=== PATIENT | female | born 1955 | race Caucasian/White ===

== ENCOUNTER 2020-01-05 21:42 | Inpatient (IN) | payer MEDICARE, OTHER ==
[~2020-01-05] VITALS: Ht 172.7 cm; Wt 73.5 kg
--- NOTE | 2020-01-05 21:52 | NUR ---
Dr. Gama at bedside for MSE.
--- NOTE | 2020-01-05 23:10 | NUR ---
Report given to Bing GRIFFITH MHU.
[2020-01-05] MEDS ORDERED: MAG HYDROX/AL HYDROX/SIMETH 30 ML LIQUID UDC PO PRN (23:45)
[2020-01-05] MEDS ORDERED: BLOOD SUGAR DIAGNOSTIC 1 EACH STRIP VI ONE (23:45)
[2020-01-06] MEDS: TEMAZEPAM 7.5 MG CAPSULE PO PRN (00:17)
--- NOTE | 2020-01-06 00:45 | NUR ---
ADMISSION NOTE: ADMITTED LAST NIGHT AT APPROX 2330, A 64 YEARS OLD FEMALE FROM [facility] ER TO U ON A 5150 HOLD FOR GD. PER HOLD, PATIENT'S FRIEND CALL THE CLINIC MULTIPLE TIMES REGARDING PATIENT'S BEHAVIOR. UPON EVALUATION, PT WAS OBSERVED PACING BACK AND FORT AT HER APARTMENT. SHE WAS UNABLE TO SIT STILL. UNABLE TO PARTICIPATE IN EVALUATION. HER APARTMENT IS IN DISARRAY AND THERE IS NO FOOD IN HER REFRIGERATOR. PATIENT APPEARS TO BE GROSSLY DISORGANIZED. HER HOLD WILL BE UP ON 10/08/2019 AT 2120. UPON ADMISSION TO THE UNIT, PATIENT NOTED A/O X 1 ABLE TO AMBULATE WITH STEADY GAIT. UPON INTERVIEW, PATIENT REFLECTS WHAT IS WRITTEN IN THE HOLD. SHE APPEARS GROSSLY PSYCHOTIC, DELUSIONAL, GRANDIOSE DELUSION, HYPERVERBAL, FLIGHT OF IDEAS, UNABLE TO HAVE A MEANINGFUL CONVERSATION. SHE WAS UNABLE TO SIGN ANY ADMISISON PAPER. FACE TO FACE ASSESSMENT WAS DONE. PATIENT WAS ADVISED OF HER HOLD AND GIVEN HER ADVISEMENT AND THE "PATIENT' MENTAL HEALTH" BOOKLET AND HER RIGHTS. SHE WAS HELPED INTO THE SHOWER. SKIN ASSESSMENT WAS LIMITED D/T PATIENT'S POOR COMPLIANT; HOWEVER, HER SKIN APPEARS INTACT. PT HAD MASTECTOMY RT BREAST. ALL HER BELOGNINGS AND CONTRABAND WAS TAKEN FROM PATIENT AND SECURED. PT WAS ADVISED OF UNIT RULES, ROOM AND ROOMMATE. SHE WAS GIVEN TEMAZEPAM 7.5 MG. PATIENT IS UNDER THE CARE OF DR LEAL. WILL CONTINUE TO MONITOR Q15MIN.
[2020-01-06 07:30] VITALS: BP 121/79
--- NOTE | 2020-01-06 09:45 | NUR ---
FRIEND CONTACT: SW contacted pts friend Go ([phone]) who provided SW with collateral information. He states pt has a long history of mental illness and psychiatric hospitalizations since the age of 17 and pt was recently hospitalized at [facility] in [facility] for 2 weeks. He states pt received Invega Sustenna Injection last week and states pt is suppose to be taking Risperdal, Trazodone, Dilantin. However, when discharged from [facility] pt was not prescribed that medication and pt went 2 weeks without taking it and that is when pt became psychotic and began decompensating. He states pt is under the psychiatric care of Dr. Salmeron from [facility] [address] , [facility] [address] .
--- NOTE | 2020-01-06 10:02 | NUR ---
FAMILY CONTACT: KESHAWN spoke with pts sister Janel ([phone]) for collateral information, treatment and discharge planning. Per sister she is pts main contact and she wishes for pt to return home ([address], [place] [address]) she states pt has a long history of mental illness and psychiatric hospitalizations since the age of 17. Per sister pt is single and has no children and finished 2 years of college. Sister states that pt was recently hospitalized at [facility] in [facility] for 2 weeks. Sister states that pts friend Go ([phone]) and nephew Adam ([phone]) look after pt and visit her daily.
[2020-01-06] MEDS: CLONAZEPAM 0.5 MG TABLET PO PRN ×2 (10:05→21:23)
--- NOTE | 2020-01-06 10:34 | NUR ---
INITIAL DISCHARGE PLAN: Per pts sister Janel ([phone]) she wishes for pt to return home [address], [place] [address]. SW will help form a safe and proper discharge in collaboration with .
--- NOTE | 2020-01-06 14:36 | NUR ---
Social Work Note: Patient is hyperverbal and tangential. Patient has been responding to internal stimulli. Patient stated that she is experiencing visual hallucination and that she is seeing her " father". This mortgage loan underwriter assured that her father is not here and helped re-direct patient back to reality. Patient expressed that she is engaged and that she has a chana ring on. Patient is paranoid and delusional.
[2020-01-06 16:06] VITALS: BP 116/78
[2020-01-06] MEDS: ARIPIPRAZOLE 5 MG TABLET PO SCH (18:36)
[2020-01-06] MEDS: DIVALPROEX 250 MG TABLET.DR PO SCH (18:37)
[2020-01-06 20:07] VITALS: BP 114/69
[2020-01-07 07:30] VITALS: BP 123/85
[2020-01-07] MEDS: DIVALPROEX 250 MG TABLET.DR PO SCH ×3 (09:24→17:26)
[2020-01-07] MEDS: ARIPIPRAZOLE 5 MG TABLET PO SCH ×2 (09:24→17:27)
--- NOTE | 2020-01-07 15:35 | NUR ---
SW Family Contact: Spoke with Patients friend Go ([phone]) who stated that he will olive picker the patient and take her back home upon discharge.
[2020-01-07] MEDS: CLONAZEPAM 0.5 MG TABLET PO PRN (15:59)
[2020-01-07 16:48] VITALS: BP 146/64
[2020-01-07 21:00] VITALS: BP_SYST 68
[2020-01-08] MEDS: TEMAZEPAM 7.5 MG CAPSULE PO PRN (00:47)
[2020-01-08] MEDS: ACETAMINOPHEN 325 MG TABLET PO PRN (01:08)
[2020-01-08] MEDS: CLONAZEPAM 0.5 MG TABLET PO PRN (01:53)
[2020-01-08 07:30] VITALS: BP 124/72
[2020-01-08] MEDS: DIVALPROEX 250 MG TABLET.DR PO SCH ×3 (08:51→17:43)
[2020-01-08] MEDS: ARIPIPRAZOLE 5 MG TABLET PO SCH ×2 (08:51→17:43)
--- NOTE | 2020-01-08 10:34 | NUR ---
KESHAWN Family Contact: KESHAWN spoke with patient's friend Go ([phone]) regarding patient's behaviors and presenting problems. KESHAWN also left a voicemail for patient's sister Janel ([phone]) to discuss patient's current status. Addendum: 01/08/20 at 1417 by MANJU MCGREGOR Received a call back from patients sister Janel ([phone]) who was wanting updates on the patient's behaviors. Janel also requested for the psychiatrist, Dr. Orona to speak with the patient's outpatient psychiatrist Dr. Salmeron ([phone]). This manual writer informed Dr. Orona of this request.
--- NOTE | 2020-01-08 14:51 | NUR ---
KESHAWN Individual Therapy Note: SW met with patient for brief individual counseling to address patient's impairment in functioning. Patient presents guarded and withdrawn. Patient kept her head under her pillow and refused to engage in a conversation with this data analyst report writer. SSW attempted to engage with patient by asking her general questions about how she is feeling, patient said "good, now go away!"
--- NOTE | 2020-01-08 16:00 | NUR ---
Gps/Information Systems Supervisor- Showered by LAND MEASURER. this pm. Requesting all her clothes/belongings and the need to leave . Confused, incoherent speech , restless, pacing .
--- NOTE | 2020-01-09 06:02 | NUR ---
GPS: PT RECEIVED WALKING WITHIN ROOM TO NURSING STATION AND SPEAKING TO HERSELF. VERY DISORGANIZED, POOR INSIGHT AND UNABLE TO RECOLLECT WITHIN A DAY. A/OX1, PT BECOME IRRITATED WHEN INFRACTING OR WHEN INTERVIEWED. PT UNKEMPT AND REFUSED SHOWER. UNCOOPERATIVE WITH STAFFS MOST TIMES. NO PHYSICAL AGGRESSION TOWARDS STAFFS BUT VERBALLY ABUSIVE AND USING FOUL LANGUAGE WHEN UPSET. UNABLE TO REDIRECT PT BUT DISTRACT AND KEPT CALM WITH NEEDS MET. PT SLEPT WELL, AWAKE THIS MORNING AND PACING, RESPONDING TO INTERNAL STIMULI. WILL CONTINUE TO MONITOR.
[2020-01-09 07:30] VITALS: BP 129/98
[2020-01-09] MEDS: DIVALPROEX 250 MG TABLET.DR PO SCH ×3 (08:42→16:20)
[2020-01-09] MEDS: ARIPIPRAZOLE 5 MG TABLET PO SCH ×2 (08:42→16:20)
[2020-01-09] MEDS: CLONAZEPAM 0.5 MG TABLET PO PRN (13:29)
[2020-01-09 16:17] VITALS: BP 158/90
[2020-01-09 21:01] VITALS: BP 130/79
[2020-01-09] MEDS: TEMAZEPAM 7.5 MG CAPSULE PO PRN (21:01)
--- NOTE | 2020-01-09 21:28 | NUR ---
Received patient at the nurses station, with arms crossed and demanding 2 Restoril. Earlier, patient refused to allow the CLOTHES DESIGNER to get VS. Garment Worker eventually was able to obtain vitals and offered patient sleeping pill which she declined. Moments later , patient was at the station asking again. Garment Worker noticed that patient paces up and down the wade, leaves room cluttered. Asking for multiple items. Clothing, food etc. Patient is paranoid and has delusions of " Give me some mens pants or the [employer] will come here". Garment Worker attempted to have meaningful conversation with patient and to reorient patient to the reality of the situation. Patient was non receptive and needs reinforcement. Patient did end up receiving a sleeping pill. Monitoring for safety and behavior escalation at this time.
--- NOTE | 2020-01-10 06:12 | NUR ---
Patient slept 7 hours last night. Patient is delusional and paranoid, multiple attempts to use phone in the hallway to call " None of your business ". Produce Inspector redirected patient but this only irritate patient and was not effective. Monitoring for behavior escalation and safety at this time.
[2020-01-10 07:30] VITALS: BP 108/75
[2020-01-10] MEDS: DIVALPROEX 250 MG TABLET.DR PO SCH ×3 (08:08→16:38)
[2020-01-10] MEDS: ARIPIPRAZOLE 5 MG TABLET PO SCH ×2 (08:08→16:38)
[2020-01-10] MEDS: CLONAZEPAM 0.5 MG TABLET PO PRN (12:15)
--- NOTE | 2020-01-10 15:24 | NUR ---
GPS: Nursing Notes: Thought Disorder: Patient is awake and responding to her name, poor impulse control, poor anger management, resistant with nursing care, loud and angry affect, believes that there is nothing wrong with her, labile, unpredictable behavior, gets easily irritable when redirected, internally preoccupied, argumentative at times, episodes of shouting "I am going to fired my doctor..", refusing her V/S at times, unable to formulate a viable plan for self care, disoriented to situation, continue with treatment plan.
[2020-01-10 16:00] VITALS: BP 158/78
[2020-01-10 20:00] VITALS: BP 132/72
[2020-01-10] MEDS: MAGNESIUM HYDROXIDE 30 ML LIQUID UDC PO PRN (22:04)
[2020-01-10] MEDS: TEMAZEPAM 7.5 MG CAPSULE PO PRN (22:10)
--- NOTE | 2020-01-11 05:52 | NUR ---
Received patient at the nurses station last night, being demanding. Patient was insisting that I give her make up. When she was told that she would get it first thing in the morning patient gave expert medical writer the middle finger and verbalized obscenities. This am patient came to the nurses station after 5.30 hours of sleep, and was calm and pleasant. Patient took a shower, used her make up as promised and put on fresh cloths. No overt paranoia or delusions at this moment. Positive reinforcement provided from staff. Continuing to monitor.
[2020-01-11] MEDS: CLONAZEPAM 0.5 MG TABLET PO PRN ×2 (06:20→12:52)
[2020-01-11 07:30] VITALS: BP 115/76
[2020-01-11] MEDS: DIVALPROEX 250 MG TABLET.DR PO SCH ×2 (08:34→16:06)
[2020-01-11] MEDS: ARIPIPRAZOLE 5 MG TABLET PO SCH (08:57)
[2020-01-11] MEDS: ACETAMINOPHEN 325 MG TABLET PO PRN (12:52)
[2020-01-11] MEDS: MAGNESIUM HYDROXIDE 30 ML LIQUID UDC PO PRN (14:12)
--- NOTE | 2020-01-11 15:02 | NUR ---
KESHAWN Individual Therapy Note: SW met with patient for brief individual counseling to address patient's impairment in functioning. Patient presents irritable and labile. SW attempted to help patient gain insight into her presenting problems, however patient is not cooperative at this time.
[2020-01-11] MEDS: risperiDONE 1 MG TABLET PO SCH ×2 (15:10→21:16)
[2020-01-11 15:39] VITALS: BP 111/77
[2020-01-11 20:00] VITALS: BP 118/72
--- NOTE | 2020-01-11 23:40 | NUR ---
RECEIVED PATIENT IN HER ROOM,CONFUSED , MUMBLING AND TALKING TO HERSELF. UNABLE TO ASSESS HER MENTAL STATUS.LATER CAME OUT PACING THE HALLWAY, ASKING TO BE GIVEN HER RESTORIL MEDICATION.PATIENT TOOK HER MEDICATION WITH GOOD EFFECT.WILL CONTINUE TO MONITOR.
[2020-01-12] MEDS: TEMAZEPAM 7.5 MG CAPSULE PO PRN (00:05)
--- NOTE | 2020-01-12 06:43 | NUR ---
SHE SLEPT FOR 5:30HOURS.
[2020-01-12 07:30] VITALS: BP 109/54
[2020-01-12] MEDS: DIVALPROEX 250 MG TABLET.DR PO SCH ×2 (08:29→17:06)
[2020-01-12] MEDS: risperiDONE 1 MG TABLET PO SCH ×2 (08:29→20:09)
[2020-01-12] MEDS: CLONAZEPAM 0.5 MG TABLET PO PRN (13:53)
[2020-01-12] MEDS: ACETAMINOPHEN 325 MG TABLET PO PRN (13:53)
[2020-01-12 20:39] VITALS: BP 124/66
--- NOTE | 2020-01-13 05:50 | NUR ---
Received Patient in the activity room last night, calm and cooperative, compliant with medication and care,later that night Patient was complaining about her room mate .Stated she's trying to threatened her and wants the roommate to be moved to the other bed or unit.Patient Easily irritated with staff and roommate and has poor thought processing. .Patient slep well throught out the night and no other behavior issues noted between her and the roommate.
[2020-01-13] MEDS: DIVALPROEX 250 MG TABLET.DR PO SCH ×2 (08:50→16:25)
[2020-01-13] MEDS: risperiDONE 1 MG TABLET PO SCH ×2 (08:50→20:49)
[2020-01-13] MEDS: CLONAZEPAM 0.5 MG TABLET PO PRN (16:30)
--- NOTE | 2020-01-13 18:27 | NUR ---
Patient compliant with medication. Patient noted murmuring during conversation. Patient seen going to nurse station more often in the afternoon asking for food. Patient redirect and clonazepam 0.5mg PRN given. will continue monitor
[2020-01-13] MEDS: MAGNESIUM HYDROXIDE 30 ML LIQUID UDC PO PRN (18:37)
[2020-01-13] MEDS: TEMAZEPAM 7.5 MG CAPSULE PO PRN (21:47)
--- NOTE | 2020-01-13 22:39 | NUR ---
Patient received walking in the hallway. Delusional. Compliant with medication, but asking for 3 Valium tablets. Not cooperative. No SI. Safety measures maintained.Continue to monitor.
[2020-01-14] MEDS: risperiDONE 1 MG TABLET PO SCH ×2 (10:50→20:15)
[2020-01-14] MEDS: DIVALPROEX 250 MG TABLET.DR PO SCH ×2 (10:50→16:44)
--- NOTE | 2020-01-14 13:09 | NUR ---
KESHAWN Individual Therapy Note: SW met with patient for brief individual counseling to address patient's impairment in functioning. Patient presents irritable, labile, and guarded. Patient does not want to talk to this freelance copywriter. Patient was not answering any of this writers questions. Patient was unable to maintain proper eye contact. This freelance copywriter was unable to provide brief therapy.
[2020-01-14 15:20] VITALS: BP 131/82
--- NOTE | 2020-01-14 15:51 | NUR ---
Received patient in bed, slept for most of the shift. No acute distress noted. Denies any pain. Denies any SI while assessing patient. Vital signs stable. Compliant with medications. Patient noted being delusional, confused, and demanding with care. Patient also noted talking to self. Patient currently in bed and calm. Informed patient to participate in activities but stayed in room. All other needs attended, safety measures in place and will continue with care.
--- NOTE | 2020-01-14 21:45 | NUR ---
Patient received walking in the hallway. Delusional. Compliant with medication. Not cooperative. No SI. Safety measures maintained.Continue to monitor.
[2020-01-14] MEDS: TEMAZEPAM 7.5 MG CAPSULE PO PRN (21:57)
--- NOTE | 2020-01-14 22:20 | NUR ---
Patient requested sleeping pill. PRN Restoril 7.5 mg administered and effective. Continue to monitor.
[2020-01-15 01:41] VITALS: BP 141/74
[2020-01-15 07:30] VITALS: BP 177/66
[2020-01-15] MEDS: risperiDONE 1 MG TABLET PO SCH ×2 (09:08→20:32)
[2020-01-15] MEDS: DIVALPROEX 250 MG TABLET.DR PO SCH ×2 (09:08→17:32)
[2020-01-15 16:00] VITALS: BP 118/76
[2020-01-15 20:00] VITALS: BP 145/80
[2020-01-15] MEDS: CLONAZEPAM 0.5 MG TABLET PO PRN (21:41)
[2020-01-15] MEDS: ACETAMINOPHEN 325 MG TABLET PO PRN (21:52)
--- NOTE | 2020-01-16 02:23 | NUR ---
GPS: PT NOTED AWAKE LYING IN BED, RESPOND TO NAME AND COMMUNICATE WHEN INITIATED, A/OX2 BUT CONFUSE. PT DENIED SI, BUT POOR INSIGHT AND DISORGANIZED THINKING. PT COOPERATIVE WITH MEDICATIONS ORDER. ON AND OFF WALKING TO STATION AND SPEAKING TO HERSELF OR RESPONDING TO INTERNAL STIMULI. PT REQUESTED KLONOPIN PER UNABLE TO REST AND PRN GIVEN ORDER AT 2140, BY 2151 PT REQUESTED FOR TYLENOL AND SAID SHE IS HAVING PAIN IN HER HEAD. PRN GIVEN AND NOTED SOME EFFECT. PT AT THIS TIME SLEEPING AND NOTED EVEN BREATHING.
--- NOTE | 2020-01-16 06:44 | NUR ---
PT REMAIN CALM DURING NIGHT S/P KLONOPIN AND TYLENOL ADMINISTRATION. PT SLEPT 7HRS AND CONTINUE RESTING.
[2020-01-16 07:30] VITALS: BP 137/102
[2020-01-16] MEDS: risperiDONE 1 MG TABLET PO SCH ×2 (09:33→20:35)
[2020-01-16] MEDS: DIVALPROEX 250 MG TABLET.DR PO SCH ×2 (09:33→16:57)
[2020-01-16 21:34] VITALS: BP 158/84
[2020-01-16] MEDS: CLONAZEPAM 0.5 MG TABLET PO PRN (23:40)
--- NOTE | 2020-01-17 02:18 | NUR ---
GPS: Pt a/ox2, confuse and some irritation with episodes of responding to internal stimuli. Pt able to be redirected but poor insight. PRN Klonopin given per pt request and noted effect, pt asleep at this time.
[2020-01-17 07:30] VITALS: BP 141/94
[2020-01-17] MEDS: risperiDONE 1 MG TABLET PO SCH ×2 (08:26→20:47)
[2020-01-17] MEDS: DIVALPROEX 250 MG TABLET.DR PO SCH ×2 (08:27→16:55)
[2020-01-17 16:00] VITALS: BP 130/64
--- NOTE | 2020-01-17 18:32 | NUR ---
Patient received in bed, AAO x1, able to express needs but with flights of ideas while trying to express self, also noted being delusional and talking to self. Vital signs stable. Denies any pain or SI up on assessment. Compliant with medications but reluctant to take at times. Patient stays in room to self most of the time and refused to participate in group therapy or activities. Compliant with other care. Safety measures in place and will continue with care.
[2020-01-17 20:00] VITALS: BP 130/66
[2020-01-18] MEDS: CLONAZEPAM 0.5 MG TABLET PO PRN ×3 (03:05→23:17)
--- NOTE | 2020-01-18 06:41 | NUR ---
Patient slept 9 hours last night. Only up one time asking for a Klonopin. This am, patient refusing to take a shower. Band Booker encourage patient to get up and interact with peers , seeing that she stayed in the room all day yesterday and isolated. This patient is unable to engage in meaningful conversation and is labile. Continuing to monitor for safety and behavior escalation.
[2020-01-18 07:30] VITALS: BP 131/80
[2020-01-18] MEDS: DIVALPROEX 250 MG TABLET.DR PO SCH ×2 (08:47→16:11)
[2020-01-18] MEDS: risperiDONE 1 MG TABLET PO SCH ×2 (08:47→20:34)
[2020-01-18 16:00] VITALS: BP 127/99
[2020-01-18 20:41] VITALS: BP 136/90
[2020-01-18] MEDS: TEMAZEPAM 7.5 MG CAPSULE PO PRN (21:13)
--- NOTE | 2020-01-19 01:54 | NUR ---
Received patient last night at the nurses station with hands on her hips demanding " Give me some stretchie pants right now!" Later patient was out of her room again, asking for "2 Valium's and a sleeping pill". Cut Roll Machine Operator tried to explain that there was not a order for Valium, and even if there was, it would be unsafe to administer both medications at the same time. Patient proceed to argue and talk over the financial writer, then walked into the room and slammed the door.This type of behavior went on for many hours. Patient was unable to engage in any meaningful conversation and was posturing and verbally aggressive with staff. Redirection and distraction were provided. Patient calmed down and finally went to bed.
[2020-01-19 07:30] VITALS: BP 114/93
[2020-01-19] MEDS: risperiDONE 1 MG TABLET PO SCH ×2 (08:25→20:20)
[2020-01-19] MEDS: DIVALPROEX 250 MG TABLET.DR PO SCH ×2 (08:25→16:26)
[2020-01-19] MEDS: CLONAZEPAM 0.5 MG TABLET PO PRN ×2 (14:56→20:30)
[2020-01-19] MEDS: ACETAMINOPHEN 325 MG TABLET PO PRN ×2 (14:59→20:48)
--- NOTE | 2020-01-19 15:13 | NUR ---
SW Family Contact: Spoke with Patients friend Go ([phone]) regarding patient's discharge for tomorrow, however Go was sharing his frustration with the discharge plan and stated that he does not want the patient discharged "yet". This public relations writer explained that the psychiatrist is discharging the patient. Go stated that he cannot provide transportation for the patient back home.
--- NOTE | 2020-01-19 15:14 | NUR ---
SW Family Contact: Spoke with patient's sister Janel ([phone]) regarding patient's discharge plan for tomorrow. Janel stated that she might be able to pay for the patient's transportation and will call this television writer back.
[2020-01-19 15:20] VITALS: BP 141/84
[2020-01-19 19:57] VITALS: BP 151/82
[2020-01-19] MEDS: TEMAZEPAM 7.5 MG CAPSULE PO PRN (20:30)
--- NOTE | 2020-01-20 00:17 | NUR ---
aox3-4 ambulatory needs attended. VSS. compliant with meds. klonopin given per patient's request as well as restoril.VSS. possible discharge in am. No signs of agitation noted. will monitor patient.
--- NOTE | 2020-01-20 06:22 | NUR ---
End of shift notes: Uneventful night. Needs attended. VSS. Ambulates to the BR without difficulty. No acute distress noted. Kept comfortable. No complaints presented during the shift.
[2020-01-20 07:30] VITALS: BP 131/87
[2020-01-20] MEDS: risperiDONE 1 MG TABLET PO SCH ×2 (08:27→20:25)
[2020-01-20] MEDS: DIVALPROEX 250 MG TABLET.DR PO SCH ×2 (08:27→17:04)
--- NOTE | 2020-01-20 14:30 | NUR ---
PATIENT CALM AND MEDICATION COMPLIANT,POSSIBLY DISCHARGE IN AM AFTER TRANSPORTATION BEEN ARRANGED.
--- NOTE | 2020-01-20 14:36 | NUR ---
SW Family Contact: Spoke with patient's sister Janel ([phone]) regarding patient's discharge plan. This engineering technical writer explored transportation options with Janel, however she was unable to afford. Janel stated that the patient's friend, Go ([phone]) will be able to provide transportation for the patient tomorrow at 10AM and take her back home. This engineering technical writer spoke with Go, who confirmed that he will black pickler the patient tomorrow ay 10AM.
[2020-01-20 15:48] LABS: *BILIRUBIN,URIN NEGATIVE (NEGATIVE); *CLARITY,URINE CLEAR (CLEAR); *COLOR,URINE YELLOW (YELLOW); *KETONES,URINE NEGATIVE (NEGATIVE); *UROBILINOGEN,URINE 0.2 E.U./dl (NORMAL); LEUKOCYTE ESTERASE ,URINE 1+ (NEGATIVE); NITRITE, URINE NEGATIVE (NEGATIVE); UGLUCOSE NEGATIVE (NEGATIVE)
[2020-01-20 15:59] LABS: *BLOOD, URINE TRACE INTACT (NEGATIVE)
[2020-01-20 16:00] VITALS: BP 117/84
[2020-01-20 16:02] VITALS: BP 117/84
[2020-01-20 17:30] LABS: BACTERIA,URINE FEW /HPF (NONE SEEN); SQUAMOUS EPITHELIAL CELL,UR FEW /HPF (NONE SEEN)
[2020-01-20] MEDS: ACETAMINOPHEN 325 MG TABLET PO PRN (19:29)
[2020-01-20 19:57] VITALS: BP 155/81
[2020-01-20] MEDS: CLONAZEPAM 0.5 MG TABLET PO PRN (20:37)
[2020-01-20] MEDS: TEMAZEPAM 7.5 MG CAPSULE PO PRN (20:37)
--- NOTE | 2020-01-20 21:10 | NUR ---
awake alert and oriented x 3-4 VSS Compliant with meds. No behavioral issues noted. Calm and cooperatve. Will monitor patient. Possible d/c in am.
--- NOTE | 2020-01-21 06:24 | NUR ---
End of shift notes: Quiet night. No apparent distress noted. Slept well throughout the shift. Kept comfortable. No behavioral issues noted. Discharged to home today.
[2020-01-21 07:30] VITALS: BP 133/87
--- NOTE | 2020-01-21 08:28 | NUR ---
SW Discharge Note: Patient will be discharged back home [address], [place] [address]. Patients friend Go ([phone]) is also aware and agreeable with discharge plans and will be picking the patient up and taking her back home today at 10AM. Patients sister Janel ([phone]) is involved in her care and is made aware and is agreeable with discharge plans. Patient will be following up with her psychiatrist Dr. Salmeron at [facility] [address], [place] [address] ([phone]) and has an appointment on January 21, 2020 at 3PM. Patient is referred to [facility] for primary care physician follow up [address], [place] [address] ([phone]) and has an appointment scheduled on January 27, 2020 at 2:30pm for an intake evaluation.
[2020-01-21] MEDS: risperiDONE 1 MG TABLET PO SCH (08:52)
[2020-01-21] MEDS: DIVALPROEX 250 MG TABLET.DR PO SCH (08:52)
--- NOTE | 2020-01-21 09:55 | NUR ---
Received patient in room awake, No acute distress noted; able to express self but still noted with flight of ideas while expressing self. Vital signs stable. No complains of pain. Patient compliant with care and medications. Patient took all due medications. will continue with care.
--- NOTE | 2020-01-21 10:20 | NUR ---
Discharge Notes: Patient aware of discharge orders and stated that she was going home today. Discharge instructions given to patient, discharge medication orders explained to patient. Patient asked if she can have prescription for Psych medications and belongings back. Explained and showed prescription to patient and follow medication therapy as ordered. All belongings including [place] ID returned back; Patient signed all discharge paper works. Complaint with care, episodes of delusional thoughts noted, denied any suicidal ideations during assessment. Explained to patient regarding F/UP appointment with Psychiatrist and patient agreed. All other needs attended and will continue with care.
--- NOTE | 2020-01-21 10:45 | NUR ---
Discharge Notes. Patient picked up by Go (friend), and discharge orders, prescription and paper works explained to patient and friend by charge nurse. Mr. Stiles verbalized understanding of discharge orders and left at 10:35am.
[2020-01-21] MEDS ORDERED: CEPH500C2 PO (11:37)
--- NOTE | 2020-01-21 11:40 | NUR ---
DC notes: Called Mr. Stiles and patient to inform regarding an E-prescription order for ATB therapy for patient and Mr. Stiles stated will picker machine operator prescription.
[2020-01-21] MEDS ORDERED: CEphaleXIN 500 MG CAPSULE PO SCH (17:00)
== END 2020-01-21 10:35 | disposition home or self-care (01) | DRG 885 ==
LOC: ER 21:42 → GPS 23:21
PROVIDERS: ADMIT Psychiatry & Neurology Psychiatry; ATTEND Nurse Practitioner Acute Care
DX: F31.2 Bipolar disorder, current episode manic severe with psychotic features (principal); N39.0 Urinary tract infection, site not specified; J44.9 Chronic obstructive pulmonary disease, unspecified; Z90.11 Acquired absence of right breast and nipple; Z85.3 Personal history of malignant neoplasm of breast; Z92.21 Personal history of antineoplastic chemotherapy; Z73.6 Limitation of activities due to disability; R73.9 Hyperglycemia, unspecified; B96.89 Other specified bacterial agents as the cause of diseases classified elsewhere; F15.11 Other stimulant abuse, in remission
CPT/HCPCS: 36415; 71045; 80164; 87086; 93005; A4663; J3490

== ENCOUNTER 2025-02-05 03:34 | Inpatient (IN) | payer MEDICARE, OTHER ==
[~2025-02-05] VITALS: Ht 170.2 cm; Wt 81.6 kg
[2025-02-05 03:34] VITALS: BP 146/73
[~2025-02-05 03:34] MED LIST: CEPH500C2 PO
[2025-02-05] MEDS ORDERED: PALI3TAB PO (04:10)
[2025-02-05] MEDS ORDERED: ALBU18HF2 IH (04:10)
[2025-02-05] MEDS ORDERED: LITH300C2 PO (04:10)
[2025-02-05] MEDS ORDERED: BENZ0.5T43 PO (04:10)
[2025-02-05] MEDS ORDERED: UMEC1BLS IH (04:10)
[2025-02-05] MEDS ORDERED: TEMAZEPAM 7.5 MG CAPSULE PO PRN (05:45)
[2025-02-05] MEDS: BLOOD SUGAR DIAGNOSTIC 1 EACH STRIP VI ONE (06:22)
[2025-02-05] MEDS: LORAZEPAM 1 MG TABLET PO PRN (06:25)
[2025-02-05] MEDS ORDERED: BENZTROPINE MESYLATE 0.5 MG TABLET PO SCH (13:00)
[2025-02-05] MEDS ORDERED: ALBUTEROL SULFATE 8 GM HFA.AER.AD IH PRN (16:30)
[2025-02-05] MEDS ORDERED: BENZTROPINE MESYLATE 1 MG TABLET PO SCH (17:00)
[2025-02-05] MEDS: BENZTROPINE MESYLATE 0.5 MG TABLET PO SCH (18:31)
[2025-02-05 20:00] VITALS: TEMP 97.5; O2SAT 95
[2025-02-05] MEDS: LITHIUM CARBONATE 300 MG CAPSULE PO SCH (20:19)
[2025-02-06] MEDS: LORAZEPAM 1 MG TABLET PO PRN (03:43)
[2025-02-06 08:40] VITALS: BP 143/68
[2025-02-06 16:13] VITALS: BP 162/68; O2SAT 96
[2025-02-06 20:22] VITALS: BP 142/66; TEMP 98; O2SAT 96
[2025-02-07 08:20] VITALS: BP 162/68; O2SAT 96
[2025-02-07] MEDS: ACETAMINOPHEN 325 MG TABLET PO PRN (10:12)
[2025-02-07] MEDS: MAGNESIUM HYDROXIDE 30 ML LIQUID UDC PO PRN (14:42)
[2025-02-07 16:34] VITALS: BP 137/64; O2SAT 96
[2025-02-07 19:58] VITALS: BP 132/66; TEMP 98.4; O2SAT 96
[2025-02-08] MEDS: MAG HYDROX/AL HYDROX/SIMETH 30 ML LIQUID UDC PO PRN (01:03)
[2025-02-08 08:20] VITALS: BP 168/80; O2SAT 96
[2025-02-08 16:41] VITALS: BP 148/61; O2SAT 96
[2025-02-08 20:00] VITALS: BP 139/64; TEMP 98; O2SAT 94
[2025-02-09 16:31] VITALS: BP 133/69; TEMP 98; O2SAT 98
[2025-02-09 20:00] VITALS: BP 139/72; TEMP 97.9; O2SAT 94
[2025-02-10 07:36] VITALS: BP 151/72; TEMP 98.5; O2SAT 96
[2025-02-10 16:16] VITALS: BP 147/76; TEMP 98; O2SAT 96
[2025-02-10 20:00] VITALS: BP 149/76; TEMP 97.5; O2SAT 95
[2025-02-10] MEDS: LITHIUM CARBONATE 150 MG CAPSULE PO SCH (20:26)
[2025-02-10] MEDS ORDERED: LITHIUM CARBONATE 300 MG TABLET.SA PO SCH (21:00)
[2025-02-10] MEDS ORDERED: LITHIUM CARBONATE 300 MG CAPSULE PO SCH (21:00)
[2025-02-10 21:10] VITALS: O2SAT 97
[2025-02-10 21:21] VITALS: O2SAT 97
[2025-02-10 21:25] VITALS: O2SAT 98
[2025-02-10] MEDS: TEMAZEPAM 15 MG CAPSULE PO PRN (23:55)
[2025-02-11 08:14] VITALS: BP 165/79; TEMP 98.2; O2SAT 94
[2025-02-11 20:01] VITALS: BP 156/81; TEMP 98.2; O2SAT 94
[2025-02-11 20:15] VITALS: O2SAT 97
[2025-02-11 20:26] VITALS: O2SAT 97
[2025-02-11 20:30] VITALS: O2SAT 98
[2025-02-11] MEDS: LITHIUM CARBONATE 300 MG CAPSULE ONE (21:47)
[2025-02-11] MEDS: ALBUTEROL SULFATE 2.5 MG/3 ML NEBU NEB PRN (23:15)
[2025-02-12 15:42] VITALS: BP_SYST 103; BP_SYST 146; BP_DIAS 54; BP_DIAS 73; TEMP 98; O2SAT 94
[2025-02-12 19:58] VITALS: BP 161/69; TEMP 97.9; O2SAT 94
[2025-02-13] MEDS: ENSURE WITH FIBER 237 ML LIQUID (CHOCOLATE) PO SCH (09:00)
[2025-02-13 19:39] VITALS: BP 143/62; TEMP 98; O2SAT 99
[2025-02-14 08:35] VITALS: BP 115/62; TEMP 97.9; O2SAT 94
[2025-02-14 16:50] VITALS: BP 149/77; TEMP 98; O2SAT 99
[2025-02-14 19:10] VITALS: O2SAT 97
[2025-02-14 19:20] VITALS: O2SAT 97; O2SAT 98
[2025-02-15 08:20] VITALS: BP 151/65; TEMP 97.9; O2SAT 94
[2025-02-15 20:05] VITALS: BP 149/62; TEMP 98.1; O2SAT 95
[2025-02-16 08:18] VITALS: BP 138/67; TEMP 97.9; O2SAT 94
[2025-02-16 16:20] VITALS: O2SAT 96
[2025-02-16 16:30] VITALS: O2SAT 99
[2025-02-16 20:04] VITALS: BP_SYST 144; BP_SYST 167; BP_DIAS 65; BP_DIAS 79; TEMP 98.2; O2SAT 100; O2SAT 94
[2025-02-17 07:48] VITALS: BP 150/74; TEMP 97.8; O2SAT 96
[2025-02-17 13:38] VITALS: TEMP 97.8
[2025-02-17] MEDS: OLANZAPINE 10 MG VIAL IM ONE (15:27)
== END 2025-02-17 15:45 | DRG 885 ==
LOC: ER 03:40 → GPS 04:00
PROVIDERS: ADMIT Psychiatry & Neurology Psychiatry; ATTEND Nurse Practitioner Acute Care
DX: F25.0 Schizoaffective disorder, bipolar type (principal); J44.9 Chronic obstructive pulmonary disease, unspecified; Z88.8 Allergy status to other drugs, medicaments and biological substances; Z85.3 Personal history of malignant neoplasm of breast; F17.210 Nicotine dependence, cigarettes, uncomplicated; Z90.11 Acquired absence of right breast and nipple; E66.9 Obesity, unspecified; Z68.28 Body mass index [BMI] 28.0-28.9, adult; Z91.148 Patient's other noncompliance with medication regimen for other reason; Z71.6 Tobacco abuse counseling; F41.9 Anxiety disorder, unspecified
CPT/HCPCS: 36415; 70030-TC; 94640; 94760; J2358; J8499